=== PATIENT | female | born 1995 | race Two or more races ===

== ENCOUNTER 2024-08-14 19:31 | Emergency (ER) | payer MEDICAID, SELFPAY ==
[2024-08-14 19:32] VITALS: BMI 23.0
--- NOTE | 2024-08-14 19:34 | EKG_ITS ---
[facility] Test Date: 2024-08-14 Pat Name: CHARITY CASTILLO Department: Room: - Gender: Female [employer]: : 1995 Requested By: ED Temporary Provider Order Number: [id number] Reading MD: ED Temporary Provider Measurements Intervals [place] Rate: 83 P: 59 [place]: 157 QRS: 43 QRSD: 99 T: 46 QT: 356 QTc: 419 Interpretive Statements SINUS RHYTHM Compared to ECG 04/15/2023 01:33:52 Sinus tachycardia no longer present Indeterminate axis no longer present /store/S0/[id number].pdf
[2024-08-14 20:04] VITALS: BP 129/74; PULSE 83; RESP 18; TEMP 36.9; O2SAT 99
--- NOTE | 2024-08-14 20:13 | XR_ITS ---
Examination: PA chest single view Technique: Upright PA chest single view Exam date and time: August 14, 2024 2041 hrs. Indications: Chest pain beginning 2 days ago. Findings: Normal heart size No aspiration pneumonia The osseous structures are intact Impression: Negative for aspiration pneumonia
--- NOTE | 2024-08-14 20:13 | PD.EDCHEST ---
ED Chest Pain RME/HPI General Chief Complaint: Chest Pain Stated Complaint: LEFT CHEST PAIN RADIATING TO BACK X 2 DAYS Time Seen by Provider: 08/14/24 19:51 Source: patient, RN notes reviewed and old records reviewed Arrival date/time: 08/14/24 19:31 Mode of arrival: ambulatory Limitations: no limitations RME / HPI RME / HPI narrative: 29yof presents to ED for left chest wall pain radiating to back x2 days. Patient reports worsening pain with movement and palpation. Denies heavy lifting or preceding injury. Patient reports recent cough, she vapes daily as well. No fever, shortness of breath, nausea/vomiting, dizziness or syncope reported. No medications or treatment since symptom onset. Related Data Previous Rx's ?Medication ?Instructions ?Recorded ibuprofen 400 mg tablet 400 mg PO TID PRN fever or pain 12/17/22 #30 tabs naproxen 500 mg tablet 500 mg PO BID PRN pain #30 tabs 02/20/23 ondansetron 4 mg disintegrating 4 mg PO Q8H PRN nausea and 02/20/23 tablet vomiting #20 tabs ondansetron 4 mg disintegrating 4 mg PO Q8H PRN nausea and 03/25/23 tablet vomiting #30 tabs ibuprofen 600 mg tablet 600 mg PO Q6H PRN pain #30 tabs 08/14/24 methocarbamol 500 mg tablet 1,000 mg (2 x 500 mg) PO Q8H PRN 08/14/24 pain #30 tabs Allergies Allergy/AdvReac Type Severity Reaction Status Date / Time No Known Allergies Allergy Verified 08/14/24 19:34 Review of Systems Review of Systems Systems Reviewed: All systems reviewed, normal except as documented Constitutional Constitutional: Denies chills and Denies fever(s) ENT Ears, Nose, Mouth, and Throat: Denies dizziness Cardiovascular Cardiovascular: Reports chest pain (Chest wall), Denies dyspnea and Denies syncope Respiratory Respiratory: Reports cough and Denies dyspnea Gastrointestinal Gastrointestinal: Denies nausea and Denies vomiting Neurologic Neurologic: Denies dizziness and Denies syncope Past Medical History Surgical History OTHER SURGICAL HX: Left hand, right foot Social History SMOKING STATUS: Current every day smoker (vape) SUBSTANCE USE: does not use ALCOHOL: Current (social) Past Medical History Comments PMH COMMENT: IBS, pyoderma gangrenosum ED Exam General Limitations: Present no limitations General appearance: Present alert and in no apparent distress Head Head exam: Present atraumatic and normocephalic Eye Eye exam: Present normal appearance, PERRL and EOMI ENT ENT exam: Present normal exam and mucous membranes moist Neck Neck exam: Present normal inspection and full ROM Chest Chest inspection: Present tenderness (Left chest wall); Absent rash Respiratory Respiratory exam: Present normal lung sounds bilaterally and other (No wheezing, rales or rhonchi); Absent respiratory distress Cardiovascular Cardiovascular exam: Present regular rate and normal rhythm Extremities Exam Extremities exam: Present normal inspection and full ROM; Absent pedal edema Back Exam Back exam: Present full ROM and paraspinal tenderness (Left thoracic ); Absent vertebral tenderness Neurological Exam Neurological exam: Present alert and oriented X3 Psychiatric Psychiatric exam: Present normal affect and normal mood Skin Skin exam: Present warm, dry, intact and normal color Course Quality Measures none Orders Category Date Time Status EKG (ED ONLY) *Do not use* NOW Care 08/14/24 19:34 Completed CXR [XR chest 1V] Stat Exams 08/14/24 20:13 Completed EKG (ED Only) Stat Exams 08/14/24 19:34 Draft Acetaminophen Tab [Tylenol ES Tab] Med 08/14/24 20:13 Discontinued 1,000 mg PO X1 ONE CYCLObenzaPRINE [Flexeril] Med 08/14/24 20:13 Discontinued 5 mg PO X1 ONE Ketorolac Inj [Toradol Inj] Med 08/14/24 20:13 Discontinued 30 mg IM X1 ONE Vital Signs Vital signs: Vital Signs Temperature 98.5 F 08/14/24 20:04 Pulse Rate 83 08/14/24 20:04 Respiratory Rate 18 08/14/24 20:04 Blood Pressure 129/74 08/14/24 20:04 Pulse Oximetry (%) 99 08/14/24 20:04 Oxygen Delivery Method Room Air 08/14/24 20:04 Procedures -ED EKG Interpretation #1: Date of EK08/14/24 Rate: 83 Interpretation: Interpreted by me EKG Impression: Normal sinus rhythm, No acute ST-T changes, No ectopy, No ischemic changes, Normal QRS, Normal intervals and Normal axis Chest Pain MDM Narrative MDM Narrative:: 29yof presents to ED for left chest wall pain radiating to back x2 days. Patient reports worsening pain with movement and palpation. Denies heavy lifting or preceding injury. Patient reports recent cough, she vapes daily as well. No fever, shortness of breath, nausea/vomiting, dizziness or syncope reported. No medications or treatment since symptom onset. Patient reassessed. Symptoms improved after medications administered. EKG and CXR with normal findings. Suspect MSK etiology of symptoms. Encouraged Motrin/Tylenol, ice application prn pain. Stable for discharge, RTED precautions given. Patient data External records reviewed:: [facility] previous records (11/26/2023 ED visit for abscess and cellulitis of hand) Clinical information provided by:: patient Social determinants that could affect healthcare access:: other (specify) (Poor access to healthcare) Patient has the following chronic illnesses:: IBS, pyoderma gangrenosum How is presenting disease/condition affected by chronic disease/condition?: uneffected by Evaluation data The following diagnostics were reviewed and interpreted by me:: radiology exam(s) and EKG tracing(s) Lab and/or radiology exams considered but not ordered:: Troponin: Do not suspect cardiac etiology of symptoms Interpretation Summary: CXR: No acute process per my read EKG: Normal sinus Medications / Prescriptions Medications or Prescriptions considered but not ordered:: No antibiotics recommended at this time Medication administrations:: Medication Administration History Discontinued Medications Acetaminophen (Acetaminophen 500 Mg Tablet) 1,000 mg PO X1 ONE Stop: 08/14/24 20:14 Last Admin: 08/14/24 20:20 Dose: 1,000 mg Documented By: OA Cyclobenzaprine HCl (Cyclobenzaprine 5 Mg Tablet) 5 mg PO X1 ONE Stop: 08/14/24 20:14 Last Admin: 08/14/24 20:20 Dose: 5 mg Documented By: OA Ketorolac Tromethamine (Ketorolac Inj 60 Mg/2 Ml Vial) 30 mg IM X1 ONE Stop: 08/14/24 20:14 Last Admin: 08/14/24 20:20 Dose: 30 mg Documented By: FANNY Above medications administered in ED Consultations Consultation(s) initiated? (list below): No Diagnosis Chest Pain Differential Diagnosis: fracture of rib, pneumothorax, atypical chest pain, st elevation myocardial infarction, costochondritis and chest pain Most likely diagnosis given after review of the tests above:: Chest wall pain Admission Indicated Admission indicated?: not indicated Admission Request Was there a request for admission?: No Disposition Plan Disposition Plan: Discharge Discharge Attestation Discharge Attestation: The patient and all family members were given an opportunity to ask questions and understood the discharge instructions. Discharge instructions specifically effects, indications for sooner follow up or return to the emergency department, and the expected course of current diagnosis. Patient condition: Stable Discharge Plan Plan Patient Disposition: HOME (Self Care) Patient condition on transfer: Stable Prescriptions/Referrals Prescriptions/Med Rec: New ibuprofen 600 mg tablet 600 mg PO Q6H PRN (Reason: pain) Qty: 30 0RF methocarbamol 500 mg tablet 1,000 mg PO Q8H PRN (Reason: pain) Qty: 30 0RF No Action ibuprofen 400 mg tablet 400 mg PO TID PRN (Reason: fever or pain) Qty: 30 0RF ondansetron 4 mg tablet,disintegrating 4 mg PO Q8H PRN (Reason: nausea and vomiting) Qty: 30 0RF naproxen 500 mg tablet 500 mg PO BID PRN (Reason: pain) Qty: 30 0RF ondansetron 4 mg tablet,disintegrating 4 mg PO Q8H PRN (Reason: nausea and vomiting) Qty: 20 0RF Referrals: Karthik Rojas MD [Primary Care Provider] - In 1 week Problem List Clinical Impression: Chest wall pain Patient/Caregiver Discharge Instructions Education Materials: ED Chest Wall Pain, Costochondritis Additional Instructions: Alternate ibuprofen and Tylenol every 4-6 hours as needed for pain. Ice application may also help with inflammation. Print Language: [place] Stand Alone Forms: Imelda Award Info., Patient Portal Info Letter PA/GIOVANNY Supervising Physician PA/GIOVANNY Supervising Physician: Leonardo
[2024-08-14] MEDS: KETOROLAC INJ 60 MG/2 ML VIAL 30 MG IM (20:20)
[2024-08-14] MEDS: ACETAMINOPHEN 500 MG TABLET 1000 MG PO (20:20)
[2024-08-14] MEDS: CYCLObenzaPRINE 5 MG TABLET PO (20:20)
[2024-08-14 21:29] VITALS: RESP 18
== END 2024-08-14 21:29 | disposition home or self-care (01) ==
PROVIDERS: Emergency Provider Emergency Medicine; PCP Family Medicine
DX: R07.89 Other chest pain (principal)
CPT/HCPCS: 71045; 93005; 96372; 99283; J1885; A9270